=== PATIENT | female | born 1965 | race Two or more races ===

== ENCOUNTER 2024-10-16 06:57 | Inpatient (IN) | payer MEDICAID ==
[~2024-10-16] VITALS: Ht 160 cm; Wt 74.0 kg
[~2024-10-16 06:57] MED LIST: BACL20TA PO; CETI10CA10 PO; CYAN-17 PO; DICL50TA4 PO; DONE5TAB80 PO; GABA400C PO; INSU100I76 SC; MEMA1TAB3 PO; METF-490 PO; OMEP20TA PO; PRAV20TA3 PO
[2024-10-16] MEDS: ACETAMINOPHEN IV 1000 MG/100ML (10MG/ML) IV ONE (09:00)
[2024-10-16] MEDS: PREGABALIN CAPSULE 75 MG CAP PO ONE (09:00)
[2024-10-16] MEDS: CELECOXIB 100 MG CAP PO ONE (09:00)
[2024-10-16] MEDS ORDERED: MORPHINE SULF PF 5 MG/10 ML VIAL ONE (09:14)
[2024-10-16] MEDS ORDERED: KETOROLAC TROMETH 30 MG/ML 1ML VIAL ONE ×2 (09:14→09:37)
[2024-10-16] MEDS ORDERED: PROPOFOL 10 MG/ML 20 ML IV ONE (09:37)
[2024-10-16] MEDS ORDERED: ONDANSETRON HCL 4 MG/2 ML VIAL ONE (09:37)
[2024-10-16] MEDS ORDERED: GLYCOPYRROLATE 0.2 MG/ML 1ML VIAL ONE (09:37)
[2024-10-16] MEDS ORDERED: DexAMETHasone SOD PHOS 10MG/1ML VIAL INJ ONE ×2 (09:37→09:58)
[2024-10-16] MEDS ORDERED: LIDOCAINE 1% INJ PF 5ML AMP ONE (09:37)
[2024-10-16] MEDS ORDERED: CEFEPIME 1GM/ 50ML 50 ML IV ONE (09:50)
[2024-10-16] MEDS ORDERED: SODIUM CHLORIDE LOCK 10 ML ONE (09:56)
[2024-10-16] MEDS: TRANEXAMIC ACID 20 ML ONE (10:07)
[2024-10-16] MEDS: VANCOMYCIN 1GM/250ML KIT 250 ML IV ONE (10:07)
[2024-10-16] MEDS ORDERED: DEXTROSE (50%) 50ML SYRG IV PRN (10:45)
[2024-10-16] MEDS ORDERED: ACETAMINOPHEN 325 MG TAB PO PRN (10:45)
[2024-10-16] MEDS ORDERED: ONDANSETRON HCL 4 MG/2 ML VIAL IV PRN ×2 (10:45→11:30)
[2024-10-16] MEDS ORDERED: NITROGLYCERIN 0.4 MG SL TAB SL PRN (10:45)
[2024-10-16 11:12] VITALS: O2SAT 96
[2024-10-16] MEDS: LACTATED RINGER'S 1,000 ML IV SCH (11:12)
[2024-10-16] MEDS ORDERED: HYDROmorphone HCL 2 MG/ML VL/or syr IV PRN (11:30)
[2024-10-16] MEDS ORDERED: FLUMAZENIL 0.1 MG/ML INJ 10ML MDV IV PRN (11:30)
[2024-10-16] MEDS ORDERED: ePHEDrine SULFATE 50 MG/ML AMP IV PRN (11:30)
[2024-10-16] MEDS ORDERED: hydrALAZINE HCL 20 MG/ML VL IV PRN (11:30)
[2024-10-16] MEDS ORDERED: oxyCODONE HCL 5MG TAB PO PRN (11:30)
[2024-10-16] MEDS ORDERED: NALOXONE HCL 0.4 MG/ML VIAL IV PRN (11:30)
[2024-10-16] MEDS ORDERED: fentaNYL CITRATE 100 MCG/2 ML VL IV PRN (11:30)
[2024-10-16] MEDS: InsuLIN REG 1unit/0.01ml Soln (100units/ml) SC SCH ×2 (11:30→22:08)
[2024-10-16] MEDS: PREGABALIN CAPSULE 75 MG CAP ONE (11:32)
[2024-10-16] MEDS: VANCOMYCIN HCL 1000 MG VL ONE (11:33)
[2024-10-16] MEDS: ACETAMINOPHEN IV 100 ML IV ONE (11:33)
[2024-10-16] MEDS: BUPIVACAINE HCL 0.25% P/F 10 ML VIAL ONE (11:33)
[2024-10-16] MEDS: CELECOXIB 100 MG CAP ONE (11:33)
[2024-10-16] MEDS: ACCU-CHEK COMFORT CURVE STRIP VI SCH (11:44)
--- NOTE | 2024-10-16 11:52 | DVH ---
EXAM: XY R KNEE 3V XRAY CLINICAL INDICATION: S/P SURGERY TECHNIQUE: XY R KNEE 3V XRAY Comparison: None FINDINGS/IMPRESSION: There is no evidence of acute fracture or dislocation. Right total knee arthroplasty.
--- NOTE | 2024-10-16 16:41 | DVHINCON2 ---
Date Seen: Oct 16, 2024 Referring Physician Orthopedic surgeon. Reason for Consultation Medical management. History of Present Illness 59-year-old female with a known history of Alzheimer dementia, diabetes mellitus type 2, dyslipidemia who was brought in by orthopedics for elective surgery for right knee degenerative joint disease, status post right total knee arthroplasty postop day 0. Patient was currently complaining of minimal pain in the right knee. Denies any fevers chills nausea vomiting diarrhea hematemesis hematochezia melena dysuria hematuria. Past Medical History Alzheimer dementia Diabetes mellitus type 2 Dyslipidemia Past Surgical History Status post right total knee arthroplasty. Allergies: Coded Allergies: Penicillins (Unverified Allergy, Mild, hives, 10/12/24) Home Meds Reported Medications Cetirizine HCl (Allergy Relief) 10 Mg Cap, 10 MG PO BID, CAP 10/12/24 Memantine Hydrochloride (Memantine HCl) 5 Mg Tab, 5 MG PO QPM, TAB 10/12/24 Donepezil Hydrochloride (DONEPEZIL HCL) 5 Mg Tab, 5 MG PO QPM, TAB 10/12/24 Omeprazole (Gnp Omeprazole) 20 Mg Tab, 20 MG PO BID, TAB 10/12/24 Pravastatin Sodium (PRAVACHOL TABLET) 20 Mg Tb, 20 MG PO QPM, TAB 10/12/24 Baclofen (Baclofen) 20 Mg Tab, 20 MG PO TID, TAB 10/12/24 Cyanocobalamin (B12) 1,000 Mcg Cap, 1000 MCG PO DAILY, CAP 10/12/24 Diclofenac Sodium (Diclofenac Sodium Ec) 50 Mg Tab, 50 MG PO BID, TAB 10/12/24 Gabapentin (Neurontin) 400 Mg Cap, 400 MG PO TID, CAP 10/12/24 Metformin Hydrochloride (METFORMIN HCL ER) 1,000 Mg Tab, 1000 MG PO BID, TAB 10/12/24 Insulin Degludec (Insulin Degludec) 100 Unit/Ml Inj, 100 UNIT SC BID, INJ 22u qam, 12u qpm 10/12/24 Current Medications Current Medications Medications (Trade) Dose Ordered Sig/Cindi Route PRN Reason Start Time Stop Time Status Last Admin Donepezil HCl (Aricept Tablet) 5 mg QPM PO 10/16/24 18:00 Gabapentin (Neurontin Capsule) 400 mg TID PO 10/16/24 14:00 Memantine (Namenda Tablet) 5 mg QPM PO 10/16/24 18:00 Pravastatin Sodium (Pravachol Tablet) 20 mg QPM PO 10/16/24 18:00 Baclofen (Liorisal Tablet) 20 mg TID PO 10/16/24 14:00 Loratadine (Claritin Tablet) 10 mg DAILY PO 10/17/24 10:00 Cyanocobalamin (Vitamin B-12) 1,000 mcg DAILY PO 10/17/24 10:00 Patient Own Medication 100 unit BID SC 10/16/24 22:00 Patient Own Medication 1,000 mg BID PO 10/16/24 22:00 Pantoprazole Sodium (Protonix Tablet) 20 mg BID PO 10/17/24 10:00 Diagnostic Test (Pha) (Accu-Chek Comfort Curve T) 1 strip ACHS 10/16/24 11:30 10/16/24 11:44 Insulin Human Regular (InsuLIN R) HS SC 10/16/24 22:00 Insulin Human Regular (InsuLIN R) AC SC 10/16/24 11:30 Dextrose 50 ml UD PRN IV Blood Sugar LESS THAN 60 10/16/24 10:45 Vancomycin HCl 250 ml @ 250 mls/hr DAILY IV 10/18/24 10:00 10/18/24 10:59 Cefepime HCl 50 ml @ 12.5 mls/hr DAILY IV 10/17/24 10:00 UNV Lactated Ringer's 1,000 ml @ 100 mls/hr Q10H IV 10/16/24 10:45 10/16/24 11:12 Acetaminophen (Tylenol Tablet) 650 mg Q6HP PRN PO MILD PAIN OR TEMP >101 10/16/24 10:45 Oxycodone/ Acetaminophen (Percocet 5/ 325MG Tablet) 1 tab Q4HP PRN PO MODERATE PAIN 10/16/24 10:45 Hydromorphone HCl (Dilaudid Injection) 1 mg Q2HP PRN IV SEVERE PAIN (7-10 PAIN SCALE) 10/16/24 10:45 Oxycodone HCl (OxyCONTIN ER Tablet) 10 mg Q12HR PO 10/16/24 22:00 Ondansetron HCl (Zofran) 4 mg Q6HP PRN IV NAUSEA / VOMITING 10/16/24 10:45 Docusate Sodium (Colace Capsule) 100 mg Q12HR PO 10/16/24 22:00 Enoxaparin Sodium (Lovenox) 40 mg DAILY SC 10/18/24 10:00 UNV Nitroglycerin (Ntrostat Sublingual) 0.4 mg Q5MINP PRN SL FOR CHEST PAIN 10/16/24 10:45 Morphine Sulfate 2 mg Q30M PRN IV FOR CHEST PAIN 10/16/24 10:45 Ondansetron HCl (Zofran) 4 mg ONCE PRN IV NAUSEA / VOMITING 10/16/24 11:30 10/16/24 13:12 DC Naloxone HCl (Narcan) 0.4 mg Q10M PRN IV NARCOTIC REVERSAL 10/16/24 11:30 10/16/24 13:12 DC Flumazenil (Romazicon Injection) 0.2 mg ONCE PRN IV BENZODIAZEPINE REVERSAL 10/16/24 11:30 10/16/24 13:18 DC Hydralazine HCl (Apresoline Injection) 5 mg Q10M PRN IV SBP>160 10/16/24 11:30 10/16/24 13:15 DC Ephedrine Sulfate (ePHEDrine SULFATE) 10 mg Q10M PRN IV SBP LESS THAN 90 10/16/24 11:30 10/16/24 13:13 DC Fentanyl Citrate 25 mcg Q1HP PRN IV BREAKTHROUGH PAIN (7-10) 10/16/24 11:30 10/16/24 13:18 DC Hydromorphone HCl (Dilaudid Injection) 0.5 mg Q10M PRN IV SEVERE PAIN (7-10 PAIN SCALE) 10/16/24 11:30 10/16/24 13:14 DC Oxycodone HCl 10 mg ONCE PRN PO MODERATE PAIN (4-6 PAIN SCALE) 10/16/24 11:30 Review of Systems Twelve review of system were negative except mentioned above. 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 1. Alzheimer dementia 2. Dyslipidemia 3. Peripheral neuropathy 4. Diabetes mellitus type 2 5. Degenerative joint disease of the right knee status post right total knee ar throplasty postop day one. -continue pain meds as needed, physical therapy evaluation and treatment, discharge plan per Orthopedics. Plan discussed with: Patient Date of Service: Oct 16, 2024 Billing Provider: SHELIA DAVIS MD Common Visit Codes: NOT BILLABLE SHELIA DAVIS MD Oct 16, 2024 16:41
[2024-10-16 17:45] VITALS: BP 98/50; PULSE 86; RESP 16; TEMP 98.8; O2SAT 98
[2024-10-16] MEDS: BACLOFEN 10 MG TAB PO SCH (18:56)
[2024-10-16] MEDS: PRAVASTATIN SODIUM 20 MG TAB PO SCH (18:56)
[2024-10-16] MEDS: GABAPENTIN 400 MG CAP PO SCH (18:56)
[2024-10-16] MEDS: DONEPEZIL HYDROCHLORIDE 5 MG TAB PO SCH (18:56)
[2024-10-16] MEDS: MEMANTINE HCL 5 MG TAB PO SCH (18:57)
[2024-10-16 20:00] VITALS: PULSE 58; RESP 20; O2SAT 94
[2024-10-16 21:00] VITALS: BP 94/50; PULSE 58; RESP 20; TEMP 97.5; O2SAT 94
[2024-10-16] MEDS: DOCUSATE SOD 100 MG CAP PO SCH (21:49)
[2024-10-16] MEDS: INSULIN DEGLUDEC 100 UNIT/ML SC SCH (21:51)
[2024-10-16] MEDS: METFORMIN 1000 MG PO SCH (21:51)
[2024-10-16] MEDS: oxyCODONE ER 10 MG TAB PO SCH (22:00)
[2024-10-17] VITALS (8 sets, daily range): BP systolic 103–114; BP diastolic 48–74; PULSE 55–71; RESP 14–20; TEMP 97.4–98.4; O2SAT 93–98
--- NOTE | 2024-10-17 06:18 | DVHOP2 ---
Operative Report - 2 Report Details Date: 10/16/24 Preop Diagnosis: Right knee osteoarthritis Postop Diagnosis: as above Surgeon: Lazaro Brown MD Machine Stacker: Dion VEGA Anesthesiologist: Deepa RODRIGUEZ Anesthesia: General, Regional Implant: [employer] Uncemented CR Consent: The patient was informed of the risks and benefits of the procedure. These include but are not limited to complications of anesthesia, postoperative infection, incomplete relief of symptoms, recurrence of symptoms, damage to blood vessels, nerves and tendons, deep venous thrombosis, pulmonary embolism and possible need for repeat surgery in the future. Estimated Blood Loss: 50 cc Name of Procedure Performed Right total knee arthroplasty using computer navigation Procedure Details Procedure Details: FINDINGS: degenerative disease with grade IV changes with valgus deformity INDICATION: This patient has failed non-operative treatments for knee arthritis and is now indicated for a total knee replacement. Preoperatively in the waiting area as well as in the office, I had a long discussion with the patient regarding the plan, the expected outcome, the risks, benefits, and alternatives of surgery. The risks include, but are not limited to, infection (which may require future surgery and removal of implants) , bleeding (which may require a transfusion), damage to nerves, arteries, veins, tendons, muscles and other adjacent structures. Also discussed the possibilities of intraoperative fractures, implant loosening, heterotopic bone formation, and revision for variety of reasons, and medical complications etc. This was discussed at length and consent has been obtained. DESCRIPTION OF PROCEDURE: In the preoperative holding area, the consent was reviewed and the appropriate extremity was verified by the patient and marked with my initials. The patient was then transferred to the operating theatre. Appropriate anesthesia was induced. All bony prominences were well padded. A time out was performed verifying the side and site of surgery according to standard protocol. Preoperative antibiotics were given 10 minutes prior to tourniquet inflation. Tranexamic was given. A well padded thigh tourniquet was applied. The extremity was then prepped and draped in the usual sterile fashion. The extremity was exsanguinated and the tourniquet was inflated. We then made a mid-line incision, which we continued to the underlying capsular tissue. We performed a medial parapatellar arthrotomy. We periosteally exposed the proximal tibia, excised the anterior fat pad and synovium from the distal aspect of the femur. We then subluxed the patella and brought the knee up into flexion. The lateral meniscus, ACL were released. We used the appropriate guide with attached computer navigation to secure the distal femoral cutting block to the femur with pins and completed the distal femoral cut in 0 degrees to the mechanical axis with an oscillating saw. We removed the distal femoral cutting block and turned our attention to the tibia. We used the extramedullary tibial alignment guide with computer navigation to secure the proximal tibial cutting block to the tibia with pins, setting it for a 1mm cut from the more involved side, medially and completed the proximal tibial cut. We then used the spacer block and alignment shara to check the varus- valgus angle of our cuts and the extension gap. We marked our femoral anatomy, including Trenton's line and the epicondylar axis. Using that as a rotational guide, we used the sizing guide to size our femur properly, using a stylus to ensure there would be no notching. We then used the AP cutting guide to make our anterior and posterior cuts and chamfer cuts with an oscillating saw. We again checked the flexion and extension gaps and coronal balancing. Next, we sized our tibia and secured a baseplate with appropriate rotation with pins. We placed a trial femur in position and completed preparation of the notch with reamers and box osteotome and placed a trial notch in position. We used trials to choose our liner size and then placed the liner in place and reduced the knee . We then placed a trial button in place. At this point, we checked our seven parameters: 1) Limb alignment 2) Extension 3) Flexion against gravity 4) Flexion stability 5) Varus-valgus balancing 6) Component rotation 7) Patella tracking We were satisfied with these and removed all trials with the exception of the baseplate. We completed preparation of the tibia with the appropriate reamer and keel impactor and then removed the baseplate. We placed a bone plug in the distal femur and then irrigated and dried all bony surfaces and injected our pain cocktail. We impacted the proximal tibia, distal femur impacted our tibial, femoral and patellar components into position. We impacted our liner and reduced the knee and held it with axial loading until all cement hardened. We did a casie-articular cocktail block Once all cement had hardened, we brought the knee back up into flexion and used an osteotome to remove excess cement. We released the tourniquet and achieved hemostasis where necessary. A dilute betadine solution (17.5mL in 500mL saline) was used to wash the joint and left to sit for 3 minutes. This was then irrigated out with copious amounts of pulse lavage. We sprinkled 1g vancomycin powder below the fascia and 1g above the fascia. We copiously irrigated the knee. We re-checked our seven parameters. We closed our capsular incision with a PDS style suture. We irrigated further. We closed the subcutaneous tissue with Vicryl suture and re-approximated the skin with Penny. We verified all lower extremity compartments were soft and compressible and that we had intact distal pulses. We wrapped the extremity in sterile Webril and william bandage. The patient was transferred to the recovery room in stable condition. Condition Good Disposition Still a Patient LAZARO BROWN MD Oct 17, 2024 06:18
[2024-10-17 06:54] LABS: Hematocrit 35.1 % (36.0-46.0); Hemoglobin 11.4 g/dL (12.2-16.2)
[2024-10-17 07:15] LABS: Alanine Aminotransferase 24 U/L (7-40); Alkaline Phosphatase 67 U/L (46-116); Anion Gap 5 (5-15); BUN/Creatinine Ratio 21.5 (10.0-20.0); Blood Urea Nitrogen 14 mg/dL (9-23); Calcium 9.8 mg/dL (8.7-10.4); Carbon Dioxide 30 mmol/L (20-31); Chloride 104 mmol/L (98-107); Potassium 4.1 mmol/L (3.5-5.1); Sodium 139 mmol/L (136-145)
[2024-10-17 07:16] LABS: Aspartate Aminotransferase 20 U/L (13-40); Bilirubin, Total 0.8 mg/dL (0.2-1.0); Glucose 150 mg/dL (74-106); Total Protein 6.1 g/dL (5.7-8.2)
--- NOTE | 2024-10-17 07:56 | DVHPN2 ---
Progress Note Date Seen: Oct 17, 2024 Medical Necessity Reason Pt with a Central, PICC or Fol: No Subjective Patient reports: No new complaints Objective vital signs Vital Sign Date Time Temp Pulse Resp B/P (MAP) Pulse Ox O2 Delivery O2 Flow Rate FiO2 10/17/24 05:00 97.7 56 20 103/53 (70) 93 97.7 10/16/24 20:00 Nasal Cannula* 3 32 Total Intake and Output 10/16/24 10/16/24 10/17/24 15:00 23:00 07:00 Intake Total 120 ml 200 ml Balance 120 ml 200 ml medications Current Medications Medications Dose Ordered Sig/Cindi Route Start Time Stop Time Status Last Admin Dose Admin Donepezil HCl 5 mg QPM PO 10/16/24 18:00 10/16/24 18:56 5 MG Gabapentin 400 mg TID PO 10/16/24 14:00 10/17/24 06:07 400 MG Memantine 5 mg QPM PO 10/16/24 18:00 10/16/24 18:57 5 MG Pravastatin Sodium 20 mg QPM PO 10/16/24 18:00 10/16/24 18:56 20 MG Baclofen 20 mg TID PO 10/16/24 14:00 10/17/24 06:07 20 MG Loratadine 10 mg DAILY PO 10/17/24 10:00 Cyanocobalamin 1,000 mcg DAILY PO 10/17/24 10:00 Patient Own Medication 100 unit BID SC 10/16/24 22:00 Patient Own Medication 1,000 mg BID PO 10/16/24 22:00 Pantoprazole Sodium 20 mg BID PO 10/17/24 10:00 Diagnostic Test (Pha) 1 strip ACHS 10/16/24 11:30 10/17/24 06:15 1 STRIP Insulin Human Regular HS SC 10/16/24 22:00 10/16/24 22:08 3 UNITS Insulin Human Regular AC SC 10/16/24 11:30 10/17/24 06:19 2 UNITS Dextrose 50 ml UD PRN IV 10/16/24 10:45 Vancomycin HCl 250 ml @ 250 mls/hr DAILY IV 10/18/24 10:00 10/18/24 10:59 Cefepime HCl 50 ml @ 12.5 mls/hr DAILY IV 10/17/24 10:00 Lactated Ringer's 1,000 ml @ 100 mls/hr Q10H IV 10/16/24 10:45 10/16/24 11:12 100 MLS/HR Acetaminophen 650 mg Q6HP PRN PO 10/16/24 10:45 Oxycodone/ Acetaminophen 1 tab Q4HP PRN PO 10/16/24 10:45 Hydromorphone HCl 1 mg Q2HP PRN IV 10/16/24 10:45 Oxycodone HCl 10 mg Q12HR PO 10/16/24 22:00 Ondansetron HCl 4 mg Q6HP PRN IV 10/16/24 10:45 Docusate Sodium 100 mg Q12HR PO 10/16/24 22:00 10/16/24 21:49 100 MG Enoxaparin Sodium 40 mg DAILY SC 10/18/24 10:00 Nitroglycerin 0.4 mg Q5MINP PRN SL 10/16/24 10:45 Morphine Sulfate 2 mg Q30M PRN IV 10/16/24 10:45 Oxycodone HCl 10 mg ONCE PRN PO 10/16/24 11:30 Examination: GENERAL:Normal, MSK:Abnormal laboratory and microbiology Laboratory Tests 10/17/24 06:24 Test 10/17/24 06:24 Range/Units Serum Glucose 150 H 74-106 mg/dL Problem List/Assessment/Plan Problem List/Assessment/Plan 59 year old female who is s/p Right TKA POD 1 1. Pain control 2. Advised patient she may ice leg as needed for swelling 3. CPM as ordered 4. Physical therapy 5. WBAT RLE with use of walker 6. d/c planning for home on 10/18/2024 with home health and in home physical therapy Plan discussed with: Patient Date of Service: Oct 17, 2024 Billing Provider: CORNELIUS BROWN MD Common Visit Codes: NOT BILLABLE GUCCI GARCIA NP Oct 17, 2024 07:56
[2024-10-17] MEDS: PANTOPRAZOLE 40 MG TAB PO SCH (09:50)
[2024-10-17] MEDS: LORATADINE 10 MG TAB PO SCH (09:51)
[2024-10-17] MEDS: CEFEPIME 1GM/ 50ML 50 ML IV SCH (09:53)
[2024-10-17] MEDS: CYANOCOBALAMIN 500 MCG TAB PO SCH (10:43)
--- NOTE | 2024-10-17 16:09 | DVHPN2 ---
Subjective Overnight events noted. Patient was currently eating her lunch sitting comfortably in the bed. Earlier she was walking with the physical therapy. 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 Medications Current Medications Medications Dose Ordered Sig/Cindi Route Start Time Stop Time Status Last Admin Dose Admin Donepezil HCl 5 mg QPM PO 10/16/24 18:00 10/16/24 18:56 5 MG Gabapentin 400 mg TID PO 10/16/24 14:00 10/17/24 14:33 400 MG Memantine 5 mg QPM PO 10/16/24 18:00 10/16/24 18:57 5 MG Pravastatin Sodium 20 mg QPM PO 10/16/24 18:00 10/16/24 18:56 20 MG Baclofen 20 mg TID PO 10/16/24 14:00 10/17/24 14:33 20 MG Loratadine 10 mg DAILY PO 10/17/24 10:00 10/17/24 09:51 10 MG Cyanocobalamin 1,000 mcg DAILY PO 10/17/24 10:00 10/17/24 10:43 1,000 MCG Patient Own Medication 100 unit BID SC 10/16/24 22:00 Patient Own Medication 1,000 mg BID PO 10/16/24 22:00 Pantoprazole Sodium 20 mg BID PO 10/17/24 10:00 10/17/24 09:50 20 MG Diagnostic Test (Pha) 1 strip ACHS 10/16/24 11:30 10/17/24 14:29 1 STRIP Insulin Human Regular HS SC 10/16/24 22:00 10/16/24 22:08 3 UNITS Insulin Human Regular AC SC 10/16/24 11:30 10/17/24 14:34 3 UNITS Dextrose 50 ml UD PRN IV 10/16/24 10:45 Vancomycin HCl 250 ml @ 250 mls/hr DAILY IV 10/18/24 10:00 10/18/24 10:59 Cefepime HCl 50 ml @ 12.5 mls/hr DAILY IV 10/17/24 10:00 10/17/24 09:53 12.5 MLS/HR Lactated Ringer's 1,000 ml @ 100 mls/hr Q10H IV 10/16/24 10:45 10/16/24 11:12 100 MLS/HR Acetaminophen 650 mg Q6HP PRN PO 10/16/24 10:45 Oxycodone/ Acetaminophen 1 tab Q4HP PRN PO 10/16/24 10:45 Hydromorphone HCl 1 mg Q2HP PRN IV 10/16/24 10:45 Oxycodone HCl 10 mg Q12HR PO 10/16/24 22:00 10/17/24 09:51 10 MG Ondansetron HCl 4 mg Q6HP PRN IV 10/16/24 10:45 Docusate Sodium 100 mg Q12HR PO 10/16/24 22:00 10/17/24 09:50 100 MG Enoxaparin Sodium 40 mg DAILY SC 10/18/24 10:00 Nitroglycerin 0.4 mg Q5MINP PRN SL 10/16/24 10:45 Morphine Sulfate 2 mg Q30M PRN IV 10/16/24 10:45 Oxycodone HCl 10 mg ONCE PRN PO 10/16/24 11:30 Laboratory Results Laboratory Tests 10/17/24 06:24 Chemistry Test 10/17/24 06:24 Albumin 4.0 g/dL (3.2-4.8) Calcium Level 9.8 mg/dL (8.7-10.4) Total Protein 6.1 g/dL (5.7-8.2) LFT Test 10/17/24 06:24 Alanine Aminotransferase (ALT) 24 U/L (7-40) Alkaline Phosphatase 67 U/L (46-116) Aspartate Amino Transferase (AST) 20 U/L (13-40) Total Bilirubin 0.8 mg/dL (0.2-1.0) Assessment/Plan Assessment/Plan 59-year-old female with a known history of diabetes mellitus type 2, dyslipidemia, Alzheimer dementia, degenerative joint disease of the right knee who was brought in by orthopedics for elective surgery for right knee. 1. Alzheimer dementia 2. Dyslipidemia 3. Peripheral neuropathy 4. Diabetes mellitus type 2 5. Degenerative joint disease of the right knee status post right total knee arthroplasty postop day one. -continue pain meds as needed, physical therapy evaluation and treatment, discharge plan per Orthopedics. Plan discussed with: Patient Date of Service: Oct 17, 2024 Billing Provider: SHELIA DAVIS MD Common Visit Codes: NOT BILLABLE SHELIA DAVIS MD Oct 17, 2024 16:09
[2024-10-17] MEDS: HYDROmorphone HCL 2 MG/ML VL/or syr IV PRN (18:52)
[2024-10-17] MEDS: INSULIN DEGLUDEC 100 UNIT/ML SC SCH (21:39)
[2024-10-18 01:00] VITALS: BP 105/65; PULSE 68; RESP 18; TEMP 98.7; O2SAT 97
[2024-10-18 05:00] VITALS: BP 114/56; PULSE 72; RESP 19; TEMP 98.8; O2SAT 97
[2024-10-18] MEDS: INSULIN DEGLUDEC 100 UNIT/ML SC SCH (06:26)
[2024-10-18] MEDS: SODIUM CHLORIDE 0.9% 1,000 ML IV STA (06:50)
[2024-10-18 06:59] LABS: Hematocrit 33.9 % (36.0-46.0); Hemoglobin 11.1 g/dL (12.2-16.2)
--- NOTE | 2024-10-18 07:35 | DVHPN2 ---
Progress Note Date Seen: Oct 18, 2024 Medical Necessity Reason Pt with a Central, PICC or Fol: No Subjective Patient reports: Feels worse (Patient reports pain is sharp and severe in the right knee. Began last night and reports it is so severe it makes her feel like she needs to throw up. ) Objective vital signs Vital Sign Date Time Temp Pulse Resp B/P (MAP) Pulse Ox O2 Delivery O2 Flow Rate FiO2 10/18/24 05:00 98.8 72 19 114/56 (75) 97 98.8 10/17/24 20:00 Nasal Cannula* 3 32 Total Intake and Output 10/17/24 10/17/24 10/18/24 15:00 23:00 07:00 Intake Total 480 ml 2040 ml 420 ml Balance 480 ml 2040 ml 420 ml medications Current Medications Medications Dose Ordered Sig/Cindi Route Start Time Stop Time Status Last Admin Dose Admin Donepezil HCl 5 mg QPM PO 10/16/24 18:00 10/17/24 17:00 5 MG Gabapentin 400 mg TID PO 10/16/24 14:00 10/18/24 06:26 400 MG Memantine 5 mg QPM PO 10/16/24 18:00 10/17/24 17:01 5 MG Pravastatin Sodium 20 mg QPM PO 10/16/24 18:00 10/17/24 17:01 20 MG Baclofen 20 mg TID PO 10/16/24 14:00 10/18/24 06:26 20 MG Loratadine 10 mg DAILY PO 10/17/24 10:00 10/17/24 09:51 10 MG Cyanocobalamin 1,000 mcg DAILY PO 10/17/24 10:00 10/17/24 10:43 1,000 MCG Patient Own Medication 1,000 mg BID PO 10/16/24 22:00 10/17/24 21:28 1,000 MG Pantoprazole Sodium 20 mg BID PO 10/17/24 10:00 10/17/24 21:28 20 MG Diagnostic Test (Pha) 1 strip ACHS 10/16/24 11:30 10/18/24 06:34 1 STRIP Insulin Human Regular HS SC 10/16/24 22:00 10/17/24 21:37 3 UNITS Insulin Human Regular AC SC 10/16/24 11:30 10/17/24 14:34 3 UNITS Dextrose 50 ml UD PRN IV 10/16/24 10:45 Vancomycin HCl 250 ml @ 250 mls/hr DAILY IV 10/18/24 10:00 10/18/24 10:59 Cefepime HCl 50 ml @ 12.5 mls/hr DAILY IV 10/17/24 10:00 10/17/24 09:53 12.5 MLS/HR Lactated Ringer's 1,000 ml @ 100 mls/hr Q10H IV 10/16/24 10:45 10/16/24 11:12 100 MLS/HR Acetaminophen 650 mg Q6HP PRN PO 10/16/24 10:45 Oxycodone/ Acetaminophen 1 tab Q4HP PRN PO 10/16/24 10:45 Hydromorphone HCl 1 mg Q2HP PRN IV 10/16/24 10:45 10/17/24 18:52 1 MG Oxycodone HCl 10 mg Q12HR PO 10/16/24 22:00 10/17/24 09:51 10 MG Ondansetron HCl 4 mg Q6HP PRN IV 10/16/24 10:45 Docusate Sodium 100 mg Q12HR PO 10/16/24 22:00 10/17/24 21:28 100 MG Enoxaparin Sodium 40 mg DAILY SC 10/18/24 10:00 Nitroglycerin 0.4 mg Q5MINP PRN SL 10/16/24 10:45 Morphine Sulfate 2 mg Q30M PRN IV 10/16/24 10:45 Oxycodone HCl 10 mg ONCE PRN PO 10/16/24 11:30 Patient Own Medication 22 unit QAM SC 10/18/24 07:00 10/18/24 06:26 22 UNIT Patient Own Medication 12 unit HS SC 10/17/24 22:00 Sodium Chloride 1,000 ml @ 500 mls/hr Q2H STAT IV 10/18/24 06:50 10/18/24 08:49 10/18/24 06:50 500 MLS/HR Examination: GENERAL:Normal, MSK:Abnormal (aquacel intact with FLAVIA wrap) laboratory and microbiology Laboratory Tests 10/18/24 06:23 10/17/24 06:24 Test 10/17/24 06:24 Range/Units Serum Glucose 150 H 74-106 mg/dL Problem List/Assessment/Plan Problem List/Assessment/Plan 59 year old female who is s/p Right TKA POD 2 1. Pain control 2. Advised patient she may ice leg as needed for swelling 3. CPM as ordered 4. Physical therapy 5. WBAT RLE with use of walker 6. d/c planning for home on 10/19/2024 with home health and in home physical therapy-goal will be to gain better pain management today with plans for discharge tomorrow Plan discussed with: Patient Date of Service: Oct 18, 2024 Billing Provider: CORNELIUS BROWN MD Common Visit Codes: NOT BILLABLE GUCCI GARCIA NP Oct 18, 2024 07:35
[2024-10-18 08:00] VITALS: PULSE 68; RESP 17; O2SAT 96
[2024-10-18 09:00] VITALS: BP 125/58; PULSE 68; RESP 18; TEMP 97.4; O2SAT 96
[2024-10-18] MEDS: ENOXAPARIN SOD 40 MG/0.4 ML SYRINGE SC SCH (09:55)
[2024-10-18] MEDS: VANCOMYCIN 1GM/250ML KIT 250 ML IV SCH (09:56)
--- NOTE | 2024-10-18 16:11 | DVHPN2 ---
Subjective Overnight events noted. Patient is still complaining of lot of pain. 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 motor deficit Medications Current Medications Medications Dose Ordered Sig/Cindi Route Start Time Stop Time Status Last Admin Dose Admin Donepezil HCl 5 mg QPM PO 10/16/24 18:00 10/17/24 17:00 5 MG Gabapentin 400 mg TID PO 10/16/24 14:00 10/18/24 13:24 400 MG Memantine 5 mg QPM PO 10/16/24 18:00 10/17/24 17:01 5 MG Pravastatin Sodium 20 mg QPM PO 10/16/24 18:00 10/17/24 17:01 20 MG Baclofen 20 mg TID PO 10/16/24 14:00 10/18/24 13:24 20 MG Loratadine 10 mg DAILY PO 10/17/24 10:00 10/18/24 09:53 10 MG Cyanocobalamin 1,000 mcg DAILY PO 10/17/24 10:00 10/18/24 09:54 1,000 MCG Patient Own Medication 1,000 mg BID PO 10/16/24 22:00 10/17/24 21:28 1,000 MG Pantoprazole Sodium 20 mg BID PO 10/17/24 10:00 10/18/24 09:55 20 MG Diagnostic Test (Pha) 1 strip ACHS 10/16/24 11:30 10/18/24 10:43 1 STRIP Insulin Human Regular HS SC 10/16/24 22:00 10/17/24 21:37 3 UNITS Insulin Human Regular AC SC 10/16/24 11:30 10/18/24 10:44 9 UNITS Dextrose 50 ml UD PRN IV 10/16/24 10:45 Cefepime HCl 50 ml @ 12.5 mls/hr DAILY IV 10/17/24 10:00 10/18/24 13:24 12.5 MLS/HR Lactated Ringer's 1,000 ml @ 100 mls/hr Q10H IV 10/16/24 10:45 10/16/24 11:12 100 MLS/HR Acetaminophen 650 mg Q6HP PRN PO 10/16/24 10:45 Oxycodone/ Acetaminophen 1 tab Q4HP PRN PO 10/16/24 10:45 Hydromorphone HCl 1 mg Q2HP PRN IV 10/16/24 10:45 10/17/24 18:52 1 MG Oxycodone HCl 10 mg Q12HR PO 10/16/24 22:00 10/18/24 09:54 10 MG Ondansetron HCl 4 mg Q6HP PRN IV 10/16/24 10:45 Docusate Sodium 100 mg Q12HR PO 10/16/24 22:00 10/18/24 09:53 100 MG Enoxaparin Sodium 40 mg DAILY SC 10/18/24 10:00 10/18/24 09:55 40 MG Nitroglycerin 0.4 mg Q5MINP PRN SL 10/16/24 10:45 Morphine Sulfate 2 mg Q30M PRN IV 10/16/24 10:45 Oxycodone HCl 10 mg ONCE PRN PO 10/16/24 11:30 Patient Own Medication 22 unit QAM SC 10/18/24 07:00 10/18/24 06:26 22 UNIT Patient Own Medication 12 unit HS SC 10/17/24 22:00 Laboratory Results Laboratory Tests 10/17/24 06:24 10/18/24 06:23 Assessment/Plan Assessment/Plan 59-year-old female with a known history of diabetes mellitus type 2, dyslipidemia, Alzheimer dementia, degenerative joint disease of the right knee who was brought in by orthopedics for elective surgery for right knee. 1. Alzheimer dementia 2. Dyslipidemia 3. Peripheral neuropathy 4. Diabetes mellitus type 2 5. Degenerative joint disease of the right knee status post right total knee arthroplasty postop day one. -continue pain meds as needed, physical therapy evaluation and treatment, discharge plan per Orthopedics. Plan discussed with: Patient Date of Service: Oct 18, 2024 Billing Provider: SHELIA DAVIS MD Common Visit Codes: NOT BILLABLE SHELIA DAVIS MD Oct 18, 2024 16:11
[2024-10-18 16:48] VITALS: BP 119/60; PULSE 77; RESP 18; TEMP 98.7; O2SAT 98
[2024-10-18] MEDS: OXYCODONE W/ ACETAMINOPHEN 5/325MG TABLET PO PRN (17:05)
[2024-10-19] VITALS (8 sets, daily range): BP systolic 103–135; BP diastolic 58–77; PULSE 73–83; RESP 6–18; TEMP 98–98.7; O2SAT 95–98
[2024-10-19 06:41] LABS: Hematocrit 31.3 % (36.0-46.0); Hemoglobin 10.4 g/dL (12.2-16.2)
--- NOTE | 2024-10-19 07:35 | DVHDS2 ---
Discharge Summary Date of Admission Oct 16, 2024 at 10:45 Date of Discharge: Oct 19, 2024 Admitting Diagnosis right knee osteoarthritis Wounds: 1. You will likely have a gel-type dressing over your wound, you may keep this on for 7-14 days after leaving the hospital until your first post-op visit, unless it becomes soiled or your skin becomes irritated. If a wound vac dressing is placed on your knee this is to be left in place for one week and will be changed as needed. After your remove the dressing or wound vac, the home health nurse may place clean dry dressing over your wound. Keep wound covered, clean and dry for two weeks. 2. Penny will be removed during your initial post-op visit. If you have concerns about our wound, please call the office immediately. If nervous about staple removal can take pain pill one hour prior to appointment. 3. If there is drainage from your wound, change the dressing daily until it stops. If drainage lasts more than 10 days, call our office. 4. Low grade (up to 100 degrees) fever is common for the first week after surgery. You should take your temperature daily. If you have fevers of 101 or more, please call the office. Labs/Diagnostic Data: Laboratory Results Test 10/19/24 06:03 10/19/24 05:47 10/17/24 06:24 POC Glucose 148 mg/dl (70-106) Hemoglobin 10.4 g/dL (12.2-16.2) Hematocrit 31.3 % (36.0-46.0) Sodium Level 139 mmol/L (136-145) Potassium Level 4.1 mmol/L (3.5-5.1) Chloride Level 104 mmol/L (98-107) Carbon Dioxide Level 30 mmol/L (20-31) Anion Gap 5 (5-15) Blood Urea Nitrogen 14 mg/dL (9-23) Creatinine 0.65 mg/dL (0.550-1.02) Glomerular Filtration Rate Calc 100 mL/min (>90) BUN/Creatinine Ratio 21.5 (10.0-20.0) Serum Glucose 150 mg/dL (74-106) Calcium Level 9.8 mg/dL (8.7-10.4) Total Bilirubin 0.8 mg/dL (0.2-1.0) Aspartate Amino Transferase (AST) 20 U/L (13-40) Alanine Aminotransferase (ALT) 24 U/L (7-40) Alkaline Phosphatase 67 U/L (46-116) Total Protein 6.1 g/dL (5.7-8.2) Albumin 4.0 g/dL (3.2-4.8) Other Laboratory Tests 10/19/24 05:47 10/17/24 06:24 Brief Hx & Hospital Course: s/p right total knee arthroplasty Condition at Discharge: Good Final Diagnosis/Problems List as above Discharge Disposition: Home with Health Services Discharge Instruct/Medications Diet: Regular Diet comment: may advance diet as tolerated, drink plenty of fluids. Avoid alcohol while taking narcotics and no herbal supplements for 2 weeks. Activity: See Comment Activity comment: 1.You can bear as much weight as you tolerate on your knee unless specifically instructed otherwise. You may use the walking aid which you were discharged with and switch to a cane whenever you feel comfortable doing so. You should use an assistive device until you can walk comfortably without it. Keep in mind that every patient moves at their own speed of recovery so take your time. 2.A physical therapist will visit you at home. 3.Use CPM machine as instructed (6 hours a day) and increase flexion by 5 degrees daily. 4.High impact activity such as jumping, aerobics, tennis, and skiing are not permitted during the first 3 months after surgery. These activities can contribute to accelerated wear and should be done with caution after this time. Discuss this with your surgeon if you have questions. 5.Although a bath or whirlpool is NOT permitted during the first 2-3 weeks, you may shower as soon as you get home from the hospital provided there is no wound drainage. Place a dressing or covering over the wound when you shower. 6.Swimming is not permitted until the wound is healed, which typically occurs approximately 3-4 weeks after surgery. Follow Up/Referral: Driving is not permitted within the first 2 weeks. 2.Your first postoperative visit will take place 2 weeks after discharge. Please call the office once you are home from the hospital to arrange this appointment. 3.Antibiotic preventative treatment is required before dental or other invasive procedures. Please ask your surgeon about this at your first postoperative visit. If you experience chest pain, shortness of breath or severe painful calf swelling, go to the nearest emergency room to be evaluated. Please call our office once your situation is stabilized. Medications: 1.You will be discharged with pain medication, a blood thinner (unless you were previously on a blood thinner prior to surgery) and stool softener. Please follow the instructions regarding these medications as provided by your nurse at the hospital upon discharge. 2.Blood clots in the leg are a known complication of surgery. It is very important that you take the medication to protect against clots. Depending on what you are discharged on typically it is Lovenox 40mg daily for 2 weeks or Aspirin 81mg twice daily for 4 weeks. After you finish this, you should then take baby Aspirin (81mg) once daily for 2 weeks. 3.You should restart all of your prescription medications once discharged from the hospital/surgery center unless specifically instructed otherwise. 4.Herbal supplements may be restarted 2 weeks after surgery. 5.If you have been given Coumadin as a blood thinner, please follow up with your food sampler during the first two weeks after surgery to review medications and overall medical well-being. 6.Please note that narcotic pain medication may cause constipation. Please remember to take stool softeners (Colace) when using narcotics to help reduce the change of constipation. You should not use alcohol together with narcotic medication. Discharge Statement: "Patient was advised to return to the ER or call 911 if any headaches, dizziness, shortness of breath, chest pain, abdominal pain, bleeding, fevers, or worsening of medical condition. Patient was counseled about treatment plan, medications, possible side effects, patientverbalized understanding. All questions were answered to the best of my ability. This discharge took greater then 30 minutes in planning, reviewing documentation, counseling the patient, and discussing with other team members." ASSESSMENT ASSESSMENT Assessment as above GUCCI GARCIA NP Oct 19, 2024 07:35
[2024-10-19] MEDS: CEFEPIME 1GM/ 50ML 50 ML IV SCH (08:20)
[2024-10-19] MEDS: MORPHINE SULFATE INJ 2 MG/ml SYRG IV PRN (11:00)
[2024-10-19] MEDS: AMIODARONE BOLUS KIT 100 ML IV ONE (12:19)
[2024-10-19] MEDS: AMIODARONE 360mg/200mL PREMIX 200 ML IV ONE (12:34)
--- NOTE | 2024-10-19 13:56 | DVHINCON2 ---
Date Seen: Oct 19, 2024 Referring Physician MD Cesar Reason for Consultation chest pain, new onset Afib RVR History of Present Illness This is a Hebrew-speaking 59-year-old female patient who presents to this facility for a right knee arthroplasty. The patient underwent a right total kn ee arthroplasty on 10/17/2024. The patient was then admitted to the medical- surgical unit for further medical management. Today, patient began experiencing chest pain. She describes it as unprovoked, constant, pressure-like in nature, substernal without radiation. Associated symptoms include shortness of breath and palpitations. A twelve lead electrocardiogram was done and revealed atrial fibrillation with rapid ventricular response. A previous twelve lead electrocardiogram was done on 10/10/2024, presumably done as outpatient, and reveals normal sinus rhythm. Initial troponin level of 4ng/L with flat trend thereafter. Significant past medical history includes dyslipidemia, type 2 diabetes mellitus, GERD, dementia, and obesity. Initially, at the time of assessment the patient was in atrial fibrillation with rapid ventricular response. While at bedside, the patient was given morphine for pain and suddenly she was noted to convert back into normal sinus rhythm. A repeat twelve lead electrocardiogram was obtained at that time and confirms patient was back in normal sinus rhythm. The patient also reports relief of chest pain. Past Medical History Past medical history reviewed. No other significant than mentioned above. Past Surgical History Appendectomy Cholecystectomy Right knee arthroplasty Family History: Alzheimer's disease G8 MOTHER Family History Family history reviewed. Social History Denies the use of tobacco, alcohol or illicit drugs. Allergies: Coded Allergies: Penicillins (Unverified Allergy, Mild, hives, 10/12/24) Home Meds Reported Medications Cetirizine HCl (Allergy Relief) 10 Mg Cap, 10 MG PO BID, CAP 10/12/24 Memantine Hydrochloride (Memantine HCl) 5 Mg Tab, 5 MG PO QPM, TAB 10/12/24 Donepezil Hydrochloride (DONEPEZIL HCL) 5 Mg Tab, 5 MG PO QPM, TAB 10/12/24 Omeprazole (Gnp Omeprazole) 20 Mg Tab, 20 MG PO BID, TAB 10/12/24 Pravastatin Sodium (PRAVACHOL TABLET) 20 Mg Tb, 20 MG PO QPM, TAB 10/12/24 Baclofen (Baclofen) 20 Mg Tab, 20 MG PO TID, TAB 10/12/24 Cyanocobalamin (B12) 1,000 Mcg Cap, 1000 MCG PO DAILY, CAP 10/12/24 Diclofenac Sodium (Diclofenac Sodium Ec) 50 Mg Tab, 50 MG PO BID, TAB 10/12/24 Gabapentin (Neurontin) 400 Mg Cap, 400 MG PO TID, CAP 10/12/24 Metformin Hydrochloride (METFORMIN HCL ER) 1,000 Mg Tab, 1000 MG PO BID, TAB 10/12/24 Insulin Degludec (Insulin Degludec) 100 Unit/Ml Inj, 100 UNIT SC BID, INJ 22u qam, 12u qpm 10/12/24 Home Meds Home medications reviewed. Current Medications Current Medications Medications (Trade) Dose Ordered Sig/Cindi Route PRN Reason Start Time Stop Time Status Last Admin Cefepime HCl 50 ml @ 12.5 mls/hr Q12HR IV 10/19/24 10:00 10/19/24 08:20 Review of Systems Constitutional: No symptom reported Ears, Nose, & Throat: No symptom reported Eyes: No symptom reported Neurological: No symptoms reported Pulmonary/Respiratory: Shortness of breath Cardiovascular: Chest pain, palpitations Gastrointestinal: No symptom reported Genitourinary: No symptom reported Musculoskeletal: No symptom reported Skin: No symptom reported Psychiatric: No symptom reported Endocrine: No symptom reported Hematologic/Lymphatic: No symptom reported Vital Signs Vital Signs Date Time Temp Pulse Resp B/P (MAP) Pulse Ox O2 Delivery O2 Flow Rate FiO2 10/19/24 13:00 98.1 73 16 126/77 (93) 98 98.1 10/19/24 08:00 Room Air* 0 21 Physical Exam General Appearance: Cooperative. Obese Pulmonary/Respiratory: Clear, bilateral breaths sounds. Cardiovascular/Chest: Irregular rate and rhythm. Peripheral Pulses: 2+ Radial (R). 2+ Radial (L). 2+ Pedal (R). 2+ Pedal (L) Abdominal Exam: Normal bowel sounds. Ankle Exam: Negative ankle edema Lower extremities: Negative lower extremity edema Neuro/Mental Status: A/OX4, coherent. Thoughts/Psych: Normal thought pattern. Appropriate mood and affect. Good judgment and insight. Appearance: No acute distress. Skin Exam: Normal inspection. Normal color. Warm and dry. Labs/Diagnostic Data Labs Test 10/19/24 13:18 10/19/24 12:10 10/19/24 05:47 10/17/24 06:24 Range/Units POC Glucose 171 H 70-106 mg/dl Hemoglobin 10.4 L 12.2-16.2 g/dL Hematocrit 31.3 L 36.0-46.0 % Total Bilirubin 0.8 0.2-1.0 mg/dL Aspartate Amino Transferase (AST) 20 13-40 U/L Alanine Aminotransferase (ALT) 24 7-40 U/L Alkaline Phosphatase 67 46-116 U/L Total Protein 6.1 5.7-8.2 g/dL Albumin 4.0 3.2-4.8 g/dL Assessment Atrial fibrillation with rapid ventricular response, new onset, now normal sinus rhythm Dyslipidemia Type 2 diabetes mellitus Obesity Dementia Plan/Recommendation We will continue with the following plan/recommendations (): * Transthoracic echocardiogram reveals EF 65% * [id number] VASc score: 2 points * Initiate NOAC, Eliquis if cleared by ortho team * Beta-freddy for rate control * Oral antiarrhythmic agent, amiodarone * Close Cardiac surveillance * Monitor and replete electrolytes as needed, keep K greater than 4 and magnesium greater than 2 Case discussed and reviewed with . Patient now in normal sinus rhythm which was confirmed with a twelve lead electrocardiogram. We will recommend to initiate the patient on NOAC therapy if cleared by orthopedic team. We will also initiate the patient on a low-dose beta-freddy and antiarrhythmic agent. There is no further inpatient cardiac workup indicated at this time. The patient should establish and follow up with a dry goods inspector in the outpatient setting in 1-2 weeks post discharge. Thank you for allowing us to care for this patient. Please call with any questions or concerns. Critical care time spent: 42 minutes This medical document was created using an electronic medical record system with voice recognition software and computerized dictation system. Although this document has been carefully reviewed, there might still be some phonetic and typographical errors. Occasional wrong-word or ``sound-alike substitutions may have occurred due to the inherent limitations of voice recognition software. These areas are purely typographical due to imperfections of the software programs and do not reflect any compromise in the patient's medical care. Please read the chart carefully and recognize, using context, where these substitutions have occurred. Plan discussed with: Patient, Other (Bedside RN) NYHA Physical activity limitations: NA Date of Service: Oct 19, 2024 Billing Provider: AGUSTIN SALAMANCA Cardiology Common Codes: 10913-AUTIYAN INP/OBS CARE (Mod) Cardiology Consultation Codes: 45875-ISBPDBTOE CONSULT <45MIN AGUSTIN SALAMANCA Oct 19, 2024 13:56
[2024-10-19 14:16] LABS: Chloride 101 mmol/L (98-107); Potassium 3.7 mmol/L (3.5-5.1); Sodium 139 mmol/L (136-145)
[2024-10-19 14:17] LABS: Anion Gap 7 (5-15); Carbon Dioxide 31 mmol/L (20-31)
[2024-10-19 14:18] LABS: Calcium 9.4 mg/dL (8.7-10.4)
[2024-10-19 14:23] LABS: BUN/Creatinine Ratio 14.3 (10.0-20.0); Magnesium 1.8 mg/dL (1.6-2.6)
[2024-10-19 14:24] LABS: Blood Urea Nitrogen 8 mg/dL (9-23); Glucose 219 mg/dL (74-106)
--- NOTE | 2024-10-19 15:41 | DVHSR ---
APPROVED REPORT EXAM: Two-dimensional and M-mode echocardiogram with Doppler and color Doppler. Blood Pressure: 101/78 mmHg INDICATION Eval cardiac function RISK FACTORS Height: 63, Weight: 164 DIMENSIONS LVDd4.0 (3.8-5.7cm)LA (2D)3.5 (1.9-4.0cm)Aortic Root3.6 (2.0-3.7cm) LVDs2.8 (2.5-4.0cm)LA (MM) (1.9-4.0cm)Aortic Cusp Exc1.4 (1.5-2.0cm) EF (%) 60.0 (55-70%)Rt. Atrium (1.9-4.0cm)Asc. Aorta cm IVSd0.9 (0.7-1.1cm)RV (D) (1.8-2.4cm) PWd1.0 (0.7-1.1cm) Mitral Valve MitralMitral Stenosis E wave0.68m/sMV Mean GR.mmHg A wave0.72m/sMV Peak GR.18mmHg E/A ratio0.92D MVAcm2 DECEL [id number] 1/2 [id number] IVRTmsDop MVA4.19cm2 Aortic Valve Aortic ValveAortic Stenosis V11.00m/Gretel Mean GR.4mmHg V21.35m/Gretel Peak GR.7mmHg LVOT Diameter2.0 (1.8-2.4cm)Doppler AVA2.33cm2 Pulmonic Valve V20.79m/s Tricuspid Valve TR Velocity2.30m/s [id number] Conclusion lvef 65% normal LV function normal RV function mild enlarged biatrial enlargement mild no severe valve abnormalities noted normal pericardium
[2024-10-19] MEDS: MAGNESIUM SULFATE 1GM/100ML 100 ML IV ONE (15:52)
[2024-10-19] MEDS: POTASSIUM CHL 20 Meq TABLET PO ONE (15:52)
[2024-10-19 16:10] LABS: Basophils # (auto) 0 10 ^3/uL (0-0.2); Basophils % (auto) 0.5 % (0.0-2.0); Eosinophils # (auto) 0.2 10 ^3/uL (0-0.8); Eosinophils % (auto) 3.2 % (0.0-7.0); Hematocrit 31.8 % (36.0-46.0); Hemoglobin 10.6 g/dL (12.2-16.2); Lymphocytes # (auto) 2.1 10 ^3/uL (0.4-5.4); Lymphocytes % (auto) 29.3 % (10.0-50.0); Mean Corpuscular Hemoglobin 29.6 pg (28.0-32.0); Mean Corpuscular Hgb Conc. 33.3 g/dL (32.0-36.0); Mean Corpuscular Volume 88.8 fL (80.0-100.0); Monocytes # (auto) 0.6 10 ^3/uL (0-1.3); Monocytes % (auto) 8.1 % (0.0-12.0); Neutrophils # (auto) 4.2 10 ^3/uL (1.6-8.6); Neutrophils % (auto) 58.9 % (37.0-80.0); Platelet Count (auto) 209 10^3/uL (140-450); Red Blood Cells 3.58 10^6/uL (4.0-5.20); Red Cell Distribution Width 12.9 % (11.8-14.3); White Blood Cell 7.2 10^3/uL (4.4-10.8)
--- NOTE | 2024-10-19 17:28 | DVHPN2 ---
Subjective Overnight events noted. Patient went into AFib with a RVR this morning requiring IV amiodarone. Cardiology was consulted who recommended anticoagulation for primary prevention of stroke. 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 no motor deficit Medications Current Medications Medications Dose Ordered Sig/Cindi Route Start Time Stop Time Status Last Admin Dose Admin Donepezil HCl 5 mg QPM PO 10/16/24 18:00 10/18/24 17:44 5 MG Gabapentin 400 mg TID PO 10/16/24 14:00 10/19/24 15:07 400 MG Memantine 5 mg QPM PO 10/16/24 18:00 10/18/24 17:44 5 MG Pravastatin Sodium 20 mg QPM PO 10/16/24 18:00 10/18/24 17:44 20 MG Baclofen 20 mg TID PO 10/16/24 14:00 10/19/24 15:07 20 MG Loratadine 10 mg DAILY PO 10/17/24 10:00 10/19/24 08:21 10 MG Cyanocobalamin 1,000 mcg DAILY PO 10/17/24 10:00 10/19/24 08:22 1,000 MCG Patient Own Medication 1,000 mg BID PO 10/16/24 22:00 10/17/24 21:28 1,000 MG Pantoprazole Sodium 20 mg BID PO 10/17/24 10:00 10/19/24 08:21 20 MG Diagnostic Test (Pha) 1 strip ACHS 10/16/24 11:30 10/19/24 12:28 1 STRIP Insulin Human Regular HS SC 10/16/24 22:00 10/18/24 21:51 3 UNITS Insulin Human Regular AC SC 10/16/24 11:30 10/19/24 12:28 3 UNITS Dextrose 50 ml UD PRN IV 10/16/24 10:45 Lactated Ringer's 1,000 ml @ 100 mls/hr Q10H IV 10/16/24 10:45 10/18/24 21:53 100 MLS/HR Acetaminophen 650 mg Q6HP PRN PO 10/16/24 10:45 Oxycodone/ Acetaminophen 1 tab Q4HP PRN PO 10/16/24 10:45 10/18/24 17:05 1 TAB Hydromorphone HCl 1 mg Q2HP PRN IV 10/16/24 10:45 10/17/24 18:52 1 MG Oxycodone HCl 10 mg Q12HR PO 10/16/24 22:00 10/19/24 08:22 10 MG Ondansetron HCl 4 mg Q6HP PRN IV 10/16/24 10:45 Docusate Sodium 100 mg Q12HR PO 10/16/24 22:00 10/19/24 08:21 100 MG Enoxaparin Sodium 40 mg DAILY SC 10/18/24 10:00 10/19/24 08:21 40 MG Nitroglycerin 0.4 mg Q5MINP PRN SL 10/16/24 10:45 Morphine Sulfate 2 mg Q30M PRN IV 10/16/24 10:45 10/19/24 13:56 2 MG Oxycodone HCl 10 mg ONCE PRN PO 10/16/24 11:30 Patient Own Medication 22 unit QAM SC 10/18/24 07:00 10/18/24 06:26 22 UNIT Patient Own Medication 12 unit HS SC 10/17/24 22:00 Cefepime HCl 50 ml @ 12.5 mls/hr Q12HR IV 10/19/24 10:00 10/19/24 08:20 12.5 MLS/HR Metoprolol Tartrate 12.5 mg BID PO 10/19/24 22:00 Amiodarone HCl 200 mg Q12HR PO 10/19/24 22:00 UNV Laboratory Results Laboratory Tests 10/19/24 13:18 10/19/24 15:57 Chemistry Test 10/19/24 13:18 Calcium Level 9.4 mg/dL (8.7-10.4) Magnesium Level 1.8 mg/dL (1.6-2.6) HgA1c, TSH Test 10/19/24 13:18 Thyroid Stimulating Hormone (TSH) 0.56 uIU/mL (0.55-4.78) Assessment/Plan Assessment/Plan 59-year-old female with a known history of diabetes mellitus type 2, dyslipidemia, Alzheimer dementia, degenerative joint disease of the right knee who was brought in by orthopedics for elective surgery for right knee. 1. AFib with RVR status post IV amiodarone 2. Dyslipidemia 3. Peripheral neuropathy 4. Diabetes mellitus type 2 5. Degenerative joint disease of the right knee status post right total knee arthroplasty postop day one. -continue pain meds as needed, physical therapy evaluation and treatment, continue beta freddy, amiodarone, Eliquis for primary prevention of stroke -risks benefits and alternatives of Eliquis including life-threatening bleeding disability explained to the patient in detail who understand verbalized understanding and agreeable to plan. This was explained to her with the help of crab fisherman. Plan discussed with: Patient, Other My Orders Orders - SHELIA DAVIS MD Procedure Category Date Status Time Electrocardigram EKG 10/19/24 Logged 11:31 Amiodarone PHA 10/19/24 In Process 360mg/200ml Premix 12:15 Amiodarone PHA 10/19/24 In Process 360mg/200ml Premix 18:15 Transfer Orders XFER 10/19/24 Transmitted 11:57 * Cardiology Consult CONS 10/19/24 Transmitted 11:57 Date of Service: Oct 19, 2024 Billing Provider: SHELIA DAVIS MD Common Visit Codes: NOT BILLABLE SHELIA DAVIS MD Oct 19, 2024 17:28
[2024-10-19] MEDS ORDERED: AMIODARONE 360mg/200mL PREMIX 200 ML IV SCH (18:15)
[2024-10-19] MEDS: AMIODARONE HCL 200 MG TAB PO SCH (21:36)
[2024-10-19] MEDS: APIXABAN 5 MG TAB PO SCH (21:37)
[2024-10-19] MEDS: METOPROLOL TARTRATE 25 MG TAB PO SCH (21:56)
[2024-10-20 01:00] VITALS: BP 118/64; PULSE 68; RESP 16; TEMP 97.9; O2SAT 96
[2024-10-20 05:00] VITALS: BP 117/66; PULSE 70; RESP 17; TEMP 97.8; O2SAT 96
[2024-10-20 08:00] VITALS: PULSE 64; RESP 18; O2SAT 90
[2024-10-20 09:00] VITALS: BP 112/77; PULSE 90; RESP 18; TEMP 98.3; O2SAT 96
--- NOTE | 2024-10-20 11:27 | ECG ---
[facility] Test Date: 2024-10-19 Test Time: 14:13:06 Pat Name: KHAI HIGGINS Department: Respiratoy Room: 0248T A Gender: F Fire Inspector: : 1965 Requested By: SHELIA DAVIS Order Number: [id number] Reading MD: Luis Carlos Fragoso Measurements Intervals [place] Rate: 89 P: 53 [place]: 82 QRS: 87 QRSD: 107 T: 72 QT: 262 QTc: 319 Interpretive Statements Sinus rhythm Atrial premature complex Short [place] interval Biatrial enlargement Abnormal R-wave progression, early transition Inferior infarct, acute (LCx) Lateral leads are also involved Baseline wander in lead(s) V3 Electronically Signed On 10-24-2024 21:24:04 PST by Luis Carlos Fragoso Please click the below link to view image of tracing.
--- NOTE | 2024-10-20 11:27 | ECG ---
[facility] Test Date: 2024-10-19 Test Time: 14:15:31 Pat Name: KHAI HIGGINS Department: Respiratoy Room: 0248T A Gender: F Director Of Infection Prevention: : 1965 Requested By: AGUSTIN SALAMANCA Order Number: [id number] Reading MD: Luis Carlos Fragoso Measurements Intervals [place] Rate: 88 P: 46 [place]: 147 QRS: 80 QRSD: 89 T: 63 QT: 358 QTc: 434 Interpretive Statements Sinus rhythm Electronically Signed On 10-24-2024 21:24:07 PST by Luis Carlos Fragoso Please click the below link to view image of tracing.
[2024-10-20 12:51] VITALS: BP 129/63; PULSE 70; RESP 18; TEMP 98.3; O2SAT 95
--- NOTE | 2024-10-20 15:11 | ECG ---
[facility] Test Date: 2024-10-19 Test Time: 10:46:49 Pat Name: KHAI HIGGINS Department: Respiratoy Room: 0248T A Gender: F Conflicts Analyst: SHARYN : 1965 Requested By: SHELIA DAVIS Order Number: [id number] Reading MD: Luis Carlos Fragoso Measurements Intervals [place] Rate: 139 P: 0 [place]: 0 QRS: 83 QRSD: 81 T: -65 QT: 304 QTc: 463 Interpretive Statements Atrial fibrillation Borderline right axis deviation Borderline repol abnormality, diffuse leads Electronically Signed On 10-24-2024 21:23:07 PST by Luis Carlos Fragoso Please click the below link to view image of tracing.
[2024-10-20] MEDS ORDERED: AMIO200T13 PO (15:58)
[2024-10-20] MEDS ORDERED: MET25T PO (15:58)
[2024-10-20] MEDS ORDERED: APIX5TAB PO (15:58)
--- NOTE | 2024-10-20 16:26 | DVHDS2 ---
Discharge Summary Date of Admission Oct 16, 2024 at 10:45 Date of Discharge: Oct 19, 2024 Labs/Diagnostic Data: Laboratory Results Test 10/20/24 11:44 10/19/24 15:57 10/19/24 13:18 10/17/24 06:24 POC Glucose 168 mg/dl (70-106) White Blood Count 7.2 10^3/uL (4.4-10.8) Red Blood Count 3.58 10^6/uL (4.0-5.20) Hemoglobin 10.6 g/dL (12.2-16.2) Hematocrit 31.8 % (36.0-46.0) Mean Corpuscular Volume 88.8 fL (80.0-100.0) Mean Corpuscular Hemoglobin 29.6 pg (28.0-32.0) Mean Corpuscular Hemoglobin Concent 33.3 g/dL (32.0-36.0) Red Cell Distribution Width 12.9 % (11.8-14.3) Platelet Count 209 10^3/uL (140-450) Mean Platelet Volume 8.5 fL (6.9-10.8) Neutrophils (%) (Auto) 58.9 % (37.0-80.0) Lymphocytes (%) (Auto) 29.3 % (10.0-50.0) Monocytes (%) (Auto) 8.1 % (0.0-12.0) Eosinophils (%) (Auto) 3.2 % (0.0-7.0) Basophils (%) (Auto) 0.5 % (0.0-2.0) Neutrophils # (Auto) 4.2 10 ^3/uL (1.6-8.6) Lymphocytes # (Auto) 2.1 10 ^3/uL (0.4-5.4) Monocytes # (Auto) 0.6 10 ^3/uL (0-1.3) Eosinophils # (Auto) 0.2 10 ^3/uL (0-0.8) Basophils # (Auto) 0 10 ^3/uL (0-0.2) Nucleated Red Blood Cells 0.0 % Troponin I High Sensitivity 10 ng/L (</=34) Sodium Level 139 mmol/L (136-145) Potassium Level 3.7 mmol/L (3.5-5.1) Chloride Level 101 mmol/L (98-107) Carbon Dioxide Level 31 mmol/L (20-31) Anion Gap 7 (5-15) Blood Urea Nitrogen 8 mg/dL (9-23) Creatinine 0.56 mg/dL (0.550-1.02) Glomerular Filtration Rate Calc 104 mL/min (>90) BUN/Creatinine Ratio 14.3 (10.0-20.0) Serum Glucose 219 mg/dL (74-106) Calcium Level 9.4 mg/dL (8.7-10.4) Magnesium Level 1.8 mg/dL (1.6-2.6) Thyroid Stimulating Hormone (TSH) 0.56 uIU/mL (0.55-4.78) Total Bilirubin 0.8 mg/dL (0.2-1.0) Aspartate Amino Transferase (AST) 20 U/L (13-40) Alanine Aminotransferase (ALT) 24 U/L (7-40) Alkaline Phosphatase 67 U/L (46-116) Total Protein 6.1 g/dL (5.7-8.2) Albumin 4.0 g/dL (3.2-4.8) Other Laboratory Tests 10/19/24 15:57 10/19/24 13:18 Brief Hx & Hospital Course: 59-year-old female with a known history of diabetes mellitus type 2, dyslipidemia, Alzheimer dementia, degenerative joint disease of the right knee who was brought in by orthopedics for elective surgery for right knee. Patient underwent right total knee arthroplasty possibility patient was doing well until she went into AFib with RVR requiring IV amiodarone drip. Cardiology was consulted. Patient was recommended to be on beta-freddy amiodarone and anticoagulation. Risk of anticoagulation including Eliquis including life- threatening bleeding disability explained with the patient in detail with the help of pneumatic tube fitter who understand verbalized understanding and agreeable to plan. Also Orthopedics was called to agreed to place the patient on Eliquis. Patient is being discharged under stable condition with close follow up as an outpatient with PCP Cardiology and Orthopedics. Condition at Discharge: Stable Final Diagnosis/Problems List 59-year-old female with a known history of diabetes mellitus type 2, dyslipidemia, Alzheimer dementia, degenerative joint disease of the right knee who was brought in by orthopedics for elective surgery for right knee. 1. AFib with RVR status post IV amiodarone, normal sinus rhythm 2. Dyslipidemia 3. Peripheral neuropathy 4. Diabetes mellitus type 2 5. Degenerative joint disease of the right knee status post right total knee arthroplasty Discharge Disposition: Home with [facility] Discharge Will this Physician continue t: No Discharge Instruct/Medications Diet: Regular Diet comment: may advance diet as tolerated, drink plenty of fluids. Avoid alcohol whiletaking narcotics and no herbal supplements for 2 weeks. Activity: See Comment Activity comment: 1.You can bear as much weight as you tolerate on your knee unlessspecifically instructed otherwise. You may use the walking aid which youwere discharged with and switch to a cane whenever you feel comfortabledoing so. You should use an assistive device until you can walkcomfortably without it. Keep in mind that every patient moves at theirown speed of recovery so take your time.2.A physical therapist will visit you at home. 3.Use CPM machine as instructed (6 hours a day) and increase flexion by 5degrees daily.4.High impact activity such as jumping, aerobics, tennis, and skiing arenot permitted during the first 3 months after surgery. These activitiescan contribute to accelerated wear and should be done with caution afterthis time. Discuss this with your surgeon if you have questions.5.Although a bath or whirlpool is NOT permitted during the first 2-3weeks, you may shower as soon as you get home from the hospital providedthere is no wound drainage. Place a dressing or covering over the woundwhen you shower.6.Swimming is not permitted until the wound is healed, which typicallyoccurs approximately 3-4 weeks after surgery. Follow Up/Referral: Driving is not permitted within the first 2 weeks.2.Your first postoperative visit will take place 2 weeks after discharge.Please call the office once you are home from the hospital to arrange thisappointment.3.Antibiotic preventative treatment is required before dental or otherinvasive procedures. Please ask your surgeon about this at your firstpostoperative visit.If you experience chest pain, shortness of breath or severe painful calfswelling, go to the nearest emergency room to be evaluated. Please callour office once your situation is stabilized. Medications: 1.You will be discharged with pain medication, a blood thinner (unless youwere previously on a blood thinner prior to surgery) and stool softener.Please follow the instructions regarding these medications as provided byyour nurse at the hospital upon discharge.2.Blood clots in the leg are a known complication of surgery. It is veryimportant that you take the medication to protect against clots. Dependingon what you are discharged on typically it is Lovenox 40mg daily for 2weeks or Aspirin 81mg twice daily for 4 weeks. After you finish this, youshould then take baby Aspirin (81mg) once daily for 2 weeks.3.You should restart all of your prescription medications once dischargedfrom the hospital/surgery center unless specifically instructed otherwise.4.Herbal supplements may be restarted 2 weeks after surgery.5.If you have been given Coumadin as a blood thinner, please follow upwith your recovery rn during the first two weeks after surgery to reviewmedications and overall medical well-being.6.Please note that narcotic pain medication may cause constipation. Pleaseremember to take stool softeners (Colace) when using narcotics to helpreduce the change of constipation. You should not use alcohol togetherwith narcotic medication. Discharge Statement: "Patient was advised to return to the ER or call 911 if any headaches, dizziness, shortness of breath, chest pain, abdominal pain, bleeding, fevers, or worsening of medical condition. Patient was counseled about treatment plan, medications, possible side effects, patientverbalized understanding. All questions were answered to the best of my ability. This discharge took greater then 30 minutes in planning, reviewing documentation, counseling the patient, and discussing with other team members." ASSESSMENT ASSESSMENT Assessment as above SHELIA DAIVS MD Oct 20, 2024 16:26
[2024-10-20 17:00] VITALS: BP_SYST 106; BP_SYST 127; BP_DIAS 74; PULSE 77; PULSE 89; RESP 16; RESP 18; TEMP 97.5; TEMP 98.1; O2SAT 93; O2SAT 98
== END 2024-10-20 18:15 | disposition home health service (06) | DRG 326 ==
LOC: SUR 06:57 → OVERFLOW 10:45 → EAST 17:43 → TELE-EAST 10-19 12:50
PROVIDERS: ADMIT Internal Medicine; ATTEND Internal Medicine
PROC: 8E0YXBZ Computer Assisted Procedure of Lower Extremity (ICD-10-PCS; 2024-10-16)
PROC: 0SRC0J9 Replacement of Right Knee Joint with Synthetic Substitute, Cemented, Open Approach (ICD-10-PCS; principal; 2024-10-16 09:36)
DX: M17.11 Unilateral primary osteoarthritis, right knee (principal); J96.01 Acute respiratory failure with hypoxia; E11.40 Type 2 diabetes mellitus with diabetic neuropathy, unspecified; F02.80 Dementia in other diseases classified elsewhere, unspecified severity, without behavioral disturbance, psychotic disturbance, mood disturbance, and anxiety; E66.9 Obesity, unspecified; M21.00 Valgus deformity, not elsewhere classified, unspecified site; E78.5 Hyperlipidemia, unspecified; I48.91 Unspecified atrial fibrillation; G30.9 Alzheimer's disease, unspecified; Z82.0 Family history of epilepsy and other diseases of the nervous system; Z79.4 Long term (current) use of insulin; Z79.899 Other long term (current) drug therapy; Z88.0 Allergy status to penicillin; Z79.84 Long term (current) use of oral hypoglycemic drugs; Z68.26 Body mass index [BMI] 26.0-26.9, adult
CPT/HCPCS: 36415; 73562; 80048; 80053; 82962; 83735; 84443; 84484; 85014; 85018; 85025; 86850; 86900; 86901; 93005; 93306; 97110; 97116; 97163; G0378; J0131; J1100; J1815; J1885; J2405; J2704; J3490